=== PATIENT | female | born 1940 | race Caucasian/White ===

== ENCOUNTER 2020-02-19 13:48 | Emergency (ER) | payer MEDICARE ==
[~2020-02-19] VITALS: Ht 165.1 cm; Wt 59.2 kg
[2020-02-19 13:58] VITALS: BP 177/78
--- NOTE | 2020-02-19 14:16 | NUR ---
Pt had a slip in the bathtub in the hotel she is staying at for her gambling trip. Pt reports she has moderate shoulder pain and mid back/scapular pain. Pt has small abrasion to scapula. Pt denies loss of loc or hitting her head. Pt connected to monitors and call light in reach. Pt asked to change into gown. Pt awaiting xray. Pt takes baby ASA
[2020-02-19] MEDS ORDERED: ESCI20TA10 PO (14:20)
[2020-02-19] MEDS ORDERED: ATEN25TA PO (14:20)
[2020-02-19] MEDS ORDERED: CHOL10003 PO (14:20)
[2020-02-19] MEDS ORDERED: ATOR20TA37 PO (14:20)
[2020-02-19] MEDS ORDERED: LEVO25TA4 PO (14:20)
[2020-02-19] MEDS ORDERED: ASPI-515 PO (14:20)
[2020-02-19] MEDS ORDERED: LOSA25TA25 PO (14:20)
--- NOTE | 2020-02-19 15:15 | NUR ---
Patient/Caregiver given discharge instructions and they have confirmed that they understand the instructions. Patient ambulatory with steady gait.
== END 2020-02-19 15:16 | disposition home or self-care (01) ==
LOC: ED 14:56
DX: S20.211A Contusion of right front wall of thorax, initial encounter (principal); I10 Essential (primary) hypertension; F17.200 Nicotine dependence, unspecified, uncomplicated; Z86.39 Personal history of other endocrine, nutritional and metabolic disease; W18.30XA Fall on same level, unspecified, initial encounter; Y93.89 Activity, other specified; Y92.59 Other trade areas as the place of occurrence of the external cause; Y99.8 Other external cause status
CPT/HCPCS: 71046; 99284